=== PATIENT | female | born 1980 | race Caucasian/White ===

== ENCOUNTER 2018-12-16 21:35 | Emergency (ER) | payer OTHER ==
[~2018-12-16] VITALS: Ht 175.3 cm; Wt 129.3 kg
[2018-12-16] MEDS ORDERED: IBUPROFEN 800800 M1 PO (21:56)
[2018-12-16] MEDS ORDERED: MEDROLDOSEPACK PO (22:24)
[2018-12-16] MEDS ORDERED: FLEXERIL PO (22:24)
[2018-12-16] MEDS ORDERED: IBUPROFEN 400400 M2 PO (22:24)
[2018-12-16 22:36] VITALS: BP 142/88
== END 2018-12-16 22:37 | disposition home or self-care (01) ==
LOC: ER 21:35
DX: M70.12 Bursitis, left hand (principal); Y93.89 Activity, other specified; M62.838 Other muscle spasm; Z98.890 Other specified postprocedural states; Z88.8 Allergy status to other drugs, medicaments and biological substances; Z86.14 Personal history of Methicillin resistant Staphylococcus aureus infection